=== PATIENT | female | born 1935 | race Caucasian/White ===

== ENCOUNTER 2017-01-08 09:04 | Emergency (ER) | payer MEDICARE, MEDICAID ==
--- NOTE | 2017-01-14 21:28 | ER ---
ADMIT: 01/08/2017 RM/LOC: ER [facility] MR#: [id number] [id number] [place] [address] Emergency Room Report SEX: F AGE: 81 : 1935 DATE: 01/08/2017 ADDENDUM: See T-sheet for complete H and P. An 81-year-old female with dementia who lives in a halfway, comes in with complaints of nausea, reported vomiting, and anxiety. She has complaints of pain in her head, pain in her legs, and pain in her chest. On physical exam, she does not appear to be in any distress whatsoever. Her heart and lung exam was unremarkable. Belly exam was nontender. She does not appear to be dehydrated. I did check some labs and her white count is 13.4, otherwise her CBC was unremarkable. Chemistries were also unremarkable. Troponin was normal. Urinalysis was normal. I did get an EKG, which showed sinus rhythm, rate of 73. No signs of ST elevation or acute NH. She does have a known history of anxiety, she was given some Ativan here and Zofran, and was feeling improved. She will be discharged back to her facility to follow up with Dr. Alexis as needed and she is supposed to be given Zofran as needed for nausea or vomiting. Sharad Rojas MD/ cesar JOB #: [id number] CC: Sharad Rojas MD, Attending Physician Sagar Alexis MD, Family Physician
== END 2017-01-08 11:20 | disposition home or self-care (01) ==
LOC: ER 09:04
DX: F41.9 Anxiety disorder, unspecified (principal); R11.2 Nausea with vomiting, unspecified; E03.9 Hypothyroidism, unspecified; F32.9 Major depressive disorder, single episode, unspecified; Z79.899 Other long term (current) drug therapy

== ENCOUNTER 2017-01-22 14:10 | Emergency (ER) | payer MEDICARE, MEDICAID | END 2017-01-22 17:50 | disposition home or self-care (01) | DX: K57.90 Diverticulosis of intestine, part unspecified, without perforation or abscess without bleeding (principal); R91.1 Solitary pulmonary nodule; F41.9 Anxiety disorder, unspecified; R10.84 Generalized abdominal pain; E03.9 Hypothyroidism, unspecified; Z90.710 Acquired absence of both cervix and uterus ==